=== PATIENT | female | born 1985 ===

== ENCOUNTER 2016-10-27 08:52 | Inpatient (IN) | payer OTHER ==
[~2016-10-27] VITALS: Ht 175.3 cm; Wt 93.4 kg
[2016-10-27] VITALS (17 sets, daily range): BP systolic 87–124; BP diastolic 46–75
[~2016-10-27 08:52] MED LIST: AUGMENTIN TAB875 MG PO; ESGIC PO; VICODIN 5-5001 EACH PO; ceFAZolin sod 2 GM in D5W 110 ML IVPB ONE
[2016-10-27] MEDS ORDERED: Thrombin 5000 units TOPIC ONE (09:33)
[2016-10-27] MEDS ORDERED: Vancomycin 1gm inj IVPB ONE (09:34)
[2016-10-27] MEDS ORDERED: Bupivacaine w/Epi 0.5% 30ml Vial INJ ONE (09:34)
[2016-10-27] MEDS ORDERED: Bacitracin Oint 15gm Tube TOPIC ONE (09:34)
[2016-10-27] MEDS ORDERED: Gelfoam Absorbable 1gm powder pkt TOPIC ONE (09:35)
[2016-10-27] MEDS ORDERED: Thrombin 5000 units spray kit TOPIC ONE (09:35)
[2016-10-27] MEDS ORDERED: Bacitracin 50000 Units Vial ONE (09:35)
--- NOTE | 2016-10-27 09:48 | Pre-Procedure Note/Attestation ---
Pre-Procedure Note/Attestation Complete Prior to Procedure Planned Procedure: right Procedure Narrative: RIGHT L5S1 LAMINOTOMY, MEDIAL FACETECTOMY, FORAMINOTOMY AND MICRODISCECTOMY Indications for Procedure Pre-Operative Diagnosis: LUMBAR RADICULOPATHY Attestation I attest that I discussed the nature of the procedure; its benefits; risks and complications; and alternatives (and the risks and benefits of such alternatives ), prior to the procedure, with the patient (or the patient's legal associate sales representative). I attest that, if there was a reasonable possibility of needing a blood transfusion, the patient (or the patient's legal associate sales representative) was given the [facility] standardized written summary, pursuant to the Saleem Anita Blood Safety Act ([place] Health and Safety Code # 1645, as amended). I attest that I re-evaluated the patient just prior to the surgery and that there has been no change in the patient's H&P, except as documented below: MARTHA MAHMOOD October 27, 2016 09:48
[2016-10-27] MEDS ORDERED: Norco 7.5mg/325mg tab ORAL PRN ×3 (10:00→11:00)
[2016-10-27] MEDS ORDERED: HYDROmorphone 1mg/ml Carpuject IVP PRN (10:00)
[2016-10-27] MEDS ORDERED: Norco 5mg/325mg tab ORAL PRN ×2 (10:00→11:00)
[2016-10-27] MEDS ORDERED: HYDROmorphone 1mg/ml Carpuject SUBQ PRN (10:00)
[2016-10-27] MEDS ORDERED: Naloxone 0.4mg/ml Inj IVP PRN (10:00)
[2016-10-27] MEDS ORDERED: ACETAMINOPHEN-1 EAC1 ORAL (10:18)
[2016-10-27] MEDS ORDERED: fentaNYL 250mcg/5ml ONE (10:53)
[2016-10-27] MEDS ORDERED: Nimbex 2mg/ml Inj 10ML IVP ONE (10:53)
[2016-10-27] MEDS ORDERED: LR 1000ml ONE ×2 (10:53→10:59)
[2016-10-27] MEDS ORDERED: NS Irrig 1000ml ONE ×2 (10:53→10:59)
[2016-10-27] MEDS ORDERED: Sterile Water Irrig 1000ml IRRIG ONE ×2 (10:53→10:59)
[2016-10-27] MEDS ORDERED: Glycopyrrolate 0.2mg/ml 1ml Vial ONE (10:53)
[2016-10-27] MEDS ORDERED: Dexamethasone 4mg/ml vial ONE (10:53)
[2016-10-27] MEDS ORDERED: Neostigmine 1mg/ml 10ml Inj ONE (10:53)
--- NOTE | 2016-10-27 10:53 | Anethesia Preoperative Eval ---
Anesthesia Pre-op PMH/ROS General Date of Evaluation: October 27, 2016 Time of Evaluation: 10:13 Anesthesiologist: Rosario ASA Score: ASA 1 Mallampati Score Class I : Soft palate, uvula, fauces, pillars visible Class II: Soft palate, uvula, fauces visible Class III: Soft palate, base of uvula visible Class IV: Only hard plate visible Mallampati Classification: Class I Surgeon: Shorty Diagnosis: Back Pain Surgical Procedure: R L5-S1 Microdiscetomy, Hemilaminectomy, Foraminotomy Anesthesia History: none Family History: no anesthesia problems Allergies: Coded Allergies: No Known Allergies (Unverified , 06/24/12) Medications: see eMAR Past Medical History Other: obesity - BMI 30 PSxH Narrative: C/S X2 Anesthesia Pre-op Phys. Exam Physician Exam Last Vital Signs Date Time Temp Pulse Resp B/P Pulse Ox O2 Delivery O2 Flow Rate FiO2 10/27/16 10:09 98.6 68 18 106/60 100 Room Air Constitutional: NAD Neurologic: CN 2-12 intact Cardiovascular: RRR Respiratory: CTA Gastrointestinal: S/NT/ND Airway Exam Mallampati Score: Class I MO: full ROM: full Teeth: intact Anesthesia Pre-op A/P Labs Urine Test Test 10/27/16 09:20 Urine HCG, Qualitative Negative Risk Assessment & Plan Assessment: ASA 1 Status Change Before Surgery: No Pre-Antibiotics Dru Grams Ancef IV Given Within 1 Hr of Incision: Yes Time Given: 10:26 Hussain Ponce MD October 27, 2016 10:53
[2016-10-27] MEDS ORDERED: Midazolam 2mg/2ml Inj ONE (10:59)
[2016-10-27] MEDS ORDERED: fentaNYL 100 mcg/2 mL IV ONE (10:59)
[2016-10-27] MEDS ORDERED: Oxycodone/Acetaminophen 5-325 ORAL PRN (11:00)
[2016-10-27] MEDS ORDERED: Ketorolac 30mg Inj IV PRN (11:00)
[2016-10-27] MEDS ORDERED: fentaNYL 100 mcg/2 mL IV PRN (11:00)
[2016-10-27] MEDS ORDERED: Hydromorphone 0.5mg/0.5ml inj IVP PRN (11:00)
[2016-10-27] MEDS ORDERED: Midazolam 2mg/2ml Inj IVP PRN (11:00)
[2016-10-27] MEDS ORDERED: Ketorolac 60mg Inj IV PRN (11:00)
[2016-10-27] MEDS ORDERED: Atropine Inj 1mg/10ml Syr IV PRN (11:00)
[2016-10-27] MEDS ORDERED: DiphenhydrAMINE 50mg/ml Inj IVP PRN (11:00)
[2016-10-27] MEDS ORDERED: LR 1000ml 1,000 ML IVLG SCH (11:00)
[2016-10-27] MEDS ORDERED: Meperidine 25mg/0.5ml Inj IV PRN (11:00)
[2016-10-27] MEDS ORDERED: Metoclopramide 10mg/2ml Inj IVP PRN (11:00)
[2016-10-27] MEDS ORDERED: LORazepam Inj 2mg/ml 1ml IV PRN (11:00)
--- NOTE | 2016-10-27 11:03 | Immediate Post-Op Evaluation ---
Immediate Post-Op Evalulation Immediate Post-Op Evalulation Procedure: R L5-S1 Microdiscetomy, Hemilaminectomy, Foraminotomy Date of Evaluation: October 27, 2016 Time of Evaluation: 12:32 IV Fluids: 800 LR Blood Products: 0 Estimated Blood Loss: 5 Urinary Output: 0 Blood Pressure Systolic: 124 Blood Pressure Diastolic: 67 Pulse Rate: 91 Respiratory Rate: 16 O2 Sat by Pulse Oximetry: 100 Temperature (Fahrenheit): 97.1 Pain Score (1-10): 3 Nausea: No Vomiting: No Complications 0 Patient Status: awake, reacts, patent, extubated, none Hydration Status: adequate Dru Grams Ancef IV Given Within 1 Hr of Incision: Yes Time Given: 10:26 Hussain Ponce MD October 27, 2016 11:03
[2016-10-27] MEDS ORDERED: Acetaminophen (Non formulary) 100 ML IV ONE (12:00)
--- NOTE | 2016-10-27 12:09 | Brief Operative Note ---
Immediate Post Operative Note Operative Note Pre-op Diagnosis: LUMBAR RADICULOPATHY Procedure: right l5s1 microdecompression and microdiscectomy Post-op Diagnosis: same as pre-op Findings: consistent w/pre-op dx studies Surgeon: akanksha Aquatics Coordinator: ambrocio Additional Surgeons: linda Anesthesia: general Specimen: none Complications: none Condition: stable Fluids: 800cc Estimated Blood Loss: volume - 5 cc Drains: none Implant(s) used?: No MARTHA MAHMOOD October 27, 2016 12:09
[2016-10-27] MEDS ORDERED: ceFAZolin sod 1 GM in D5W 55 ML IV SCH (14:00)
--- NOTE | 2016-10-27 14:19 | Diagnostic Imaging Report ---
Indication: Back pain Comparison: None Findings: Single crosstable view of the lumbar spine obtained. Instrumentation posterior to L5-S1. Impression: Intraoperative imaging
[2016-10-27] MEDS: D5 1/2NS 1,000 ML IV SCH (15:42)
[2016-10-27] MEDS: ceFAZolin sod 1 GM in D5W 55 ML IV SCH (16:38)
[2016-10-27] MEDS: Docusate 100mg cap ORAL SCH (17:29)
--- NOTE | 2016-10-27 20:27 | General Progress Note ---
Assessment/Plan Status Narrative s/p microdecompression doing well Assessment/Plan perioperative antibiotic prophyalxis PT OT Dvt prophyalxis wioth scd adn Pneumatic compression stiocking. Subjective Date patient seen: October 27, 2016 Time patient seen: 20:26 Constitutional: Reports: no symptoms Cardiovascular: Reports: no symptoms Respiratory: Reports: no symptoms Gastrointestinal/Abdominal: Reports: no symptoms Genitourinary: Reports: no symptoms Allergies: Coded Allergies: No Known Allergies (Unverified , 06/24/12) Objective Last 24 Hour Vital Signs Date Time Temp Pulse Resp B/P Pulse Ox O2 Delivery O2 Flow Rate FiO2 10/27/16 17:53 97.0 10/27/16 16:15 97.2 74 18 113/62 98 Room Air 10/27/16 15:15 97.0 67 17 92/52 99 Nasal Cannula 2.0 10/27/16 15:00 97.9 58 17 92/55 100 Nasal Cannula 3.0 10/27/16 14:45 59 14 91/54 100 Nasal Cannula 3.0 10/27/16 14:32 69 15 118/75 100 Nasal Cannula 3.0 10/27/16 14:15 64 15 90/58 100 Nasal Cannula 3.0 10/27/16 14:00 63 12 87/57 100 Nasal Cannula 3.0 10/27/16 13:45 65 14 88/59 100 Nasal Cannula 3.0 10/27/16 13:37 97.3 10/27/16 13:30 63 16 88/56 100 Nasal Cannula 3.0 10/27/16 13:15 61 17 91/51 100 Nasal Cannula 3.0 10/27/16 13:05 69 15 100/53 100 Nasal Cannula 3.0 10/27/16 13:00 74 16 98/50 100 Simple Mask 6.0 10/27/16 12:45 72 17 107/53 100 Simple Mask 6.0 10/27/16 12:30 84 12 118/46 100 Simple Mask 6.0 10/27/16 12:22 91 16 100 10/27/16 12:21 97.1 91 16 124/67 100 Simple Mask 6.0 10/27/16 10:09 98.6 68 18 106/60 100 Room Air Laboratory Tests 10/27/16 09:20: Urine HCG, Qualitative Negative Height (Feet): 5 Height (Inches): 9.00 Weight (Pounds): 206 General Appearance: WD/WN Neck: non-tender Cardiovascular: normal rate, regular rhythm, no JVD Respiratory/Chest: lungs clear Abdomen: soft ODETTE THOMAS October 27, 2016 20:27
[2016-10-28] VITALS: BP 102/68
[2016-10-28] MEDS: D5 1/2NS 1,000 ML IV SCH ×2 (00:24→11:17)
[2016-10-28] MEDS: ceFAZolin sod 1 GM in D5W 55 ML IV SCH ×2 (00:24→08:35)
[2016-10-28 04:00] VITALS: BP 103/64
[2016-10-28 08:00] VITALS: BP 96/52
[2016-10-28] MEDS: Docusate 100mg cap ORAL SCH ×2 (08:35→17:58)
--- NOTE | 2016-10-28 09:44 | 48 Hour Post Anesthesia Eval ---
Post Anesthesia Evaluation Procedure: R L5-S1 Microdiscetomy, Hemilaminectomy, Foraminotomy Date of Evaluation: October 28, 2016 Time of Evaluation: 09:41 Blood Pressure Systolic: 108 0: 54 Pulse Rate: 72 Respiratory Rate: 22 Temperature (Fahrenheit): 97.6 O2 Sat by Pulse Oximetry: 98 Airway: patent Nausea: No Vomiting: No Pain Intensity: 3 Hydration Status: adequate Cardiopulmonary Status: stable Mental Status/LOC: patient returned to baseline Follow-up Care/Observations: n/a Post-Anesthesia Complications: none Follow-up care needed: N/A ROLY LAMA M.D. October 28, 2016 09:44
[2016-10-28 12:00] VITALS: BP 93/43
[2016-10-28 16:00] VITALS: BP 105/47
[2016-10-28 20:00] VITALS: BP 106/63
[2016-10-28] MEDS ORDERED: D5 1/2NS 1000ml IV ONE ×2 (22:41→22:56)
[2016-10-28] MEDS ORDERED: Tubing IV Secondary IV ONE (22:56)
--- NOTE | 2016-10-28 23:46 | Operative Note - Dictated ---
DATE OF OPERATION: 10/27/2016 PREOPERATIVE DIAGNOSIS: L5-S1 disc protrusion with stenosis and lower extremity radiculopathy. POSTOPERATIVE DIAGNOSIS: L5-S1 disc protrusion with stenosis and lower extremity radiculopathy. PROCEDURE PERFORMED: 1. Right-sided L5-S1 interlaminar laminotomy, medial facetectomy, foraminotomy and microdiskectomy. 2. Intraoperative use of microscope. 3. Intraoperative use of fluoroscopy. SURGEON: Darren Oro M.D. PAINT TINTER: Douglas Patton M.D. ANESTHESIA: General endotracheal anesthesia. ANESTHESIOLOGIST: Hussain Ponce M.D. INTRAOPERATIVE FINDINGS: Disc protrusion at L5-S1 with central and right paracentral extension causing effacement of the thecal sac, neural elements compression, lateral recess stenosis and compression of the traversing and exiting S1 nerve root. Foraminal stenosis for the exiting L5 nerve root. EBL: 5 mL. BACKGROUND AND INDICATIONS: This is a pleasant female, who failed nonoperative treatments. Option for above treatment was given. Risks, alternatives, and benefits were discussed with the patient at length. Risks include, but are not limited to, anesthesia complications including , medical complications including liver, kidney, and cardiopulmonary deficits, bleeding, infection, neurovascular injury, dural tear, nerve root injury, pars fracture, instability, reherniation as well as continued symptoms. The patient understood and wished to proceed. Written and verbal consent was given. DESCRIPTION OF OPERATION: The patient was brought into the operating room supine on a stretcher. Subsequently, appropriate IV lines were placed and 2 g of Ancef was administered. Surgical time-out was called. Anesthesia was induced. The patient was successfully intubated. Sequential compression devices were placed in the bilateral lower extremities. The patient was gently turned prone on the Lacho frame table. All bony prominences were well padded and the abdomen was assured to lay freely. The L5-S1 interspace was positively identified with lateral fluoroscopy preoperatively. An indelible marker was used to adelina the midline. The patient was prepped and draped in usual sterile fashion with alcohol, chlorhexidine scrub, ChloraPrep, and Ioban draping. Myself and my audiology assistant were prepped and gowned appropriately. At this point, the intraoperatively sterilely draped microscope was brought into the field. An incision was carried out with a scalpel. A self-retainer was placed with a Quintana elevator and monopolar cautery. A dissection was carried out through the dorsal lumbar fascia and through the lamina at L5 and S1 on the right side of the spine. Zapata retractors were set into place. The radiopaque marker was placed at the level of the S1 pedicle on the right side. Once this was accomplished, lateral fluoroscopy was done and the S1 pedicle was positively identified and the L5-S1 interspace was positively identified. At this point, with the use of a high-speed drill, straight and curved curettes #2 to #5 Kerrison punches, a [place] probe, and nerve hook and a dental probe, interlaminar laminotomy and medial facetectomy was accomplished. The ligamentum flavum was removed. The ligamentum flavum was found to be hypertrophied and causing mild lateral recess stenosis. Once this was accomplished, a complete decompression of the lateral recess was done until the medial aspect of the superior articular process was flushed with the S1 pedicle. Once this was done, a [place] 4 was used and the neural elements including the traversing and exiting S1 nerve root was carefully and medially retracted and a disc protrusion was found at L5-S1. With a #11 blade, a horizontal skin incision was carried out and with Woodall rongeurs and pituitary rongeurs, a nerve hook as well as a Peapod rongeur and microdiskectomy was carried out until all loose disc material was removed. Then, the floor of the canal was flat with no further compression of the neural elements. With a #2 Kerrison punch, a foraminotomy was done and the exiting L5 nerve root was found to be completely decompressed. A Alanis ball was used to check the foramina and the foramina was found to be well decompressed. At this point, a final check of the floor of the central canal, lateral recess, and foramina were done and a complete decompression was assured. The wound was copiously irrigated with triple antibiotic solution as well as the interbody space. Once this was completed, a Valsalva 40 mmHg was done. There was no CSF leak and now attention was diverted to closure and the dorsal lumbar fascia was closed with #1 Vicryl sutures in a watertight interrupted fashion. The subdermal and subcuticular layers were closed with 2-0 Vicryl and 4-0 Monocryl respectively. The skin was closed with Surgicel glue. Sterile dressing tape was placed. The patient was turned supine and was extubated in stable condition. She was found to be neurovascularly intact. She was admitted to the hospital for monitoring. Darren Oro M.D. DR: BLANK JOB#: [id number] CC: FRANCESCA
[2016-10-29 04:00] VITALS: BP 102/66
[2016-10-29 08:00] VITALS: BP 98/57
[2016-10-29] MEDS: Docusate 100mg cap ORAL SCH (08:12)
--- NOTE | 2016-10-29 08:54 | General Progress Note ---
Progress Note Progress Note Doing well post op no leg symptoms minimal back pain tolerating diet O: dressing cdi 5/5 motor in the le calves soft adn nt abdomen soft and nt A: Doing well s/p lumbar microdiscectomy P: oob pain meds prn rx and instructions for home given will need to follow up in 7 to 10 days ambulate today and then dc if able to urinate MARTHA MAHMOOD October 29, 2016 08:54
[2016-10-29] MEDS ORDERED: TRAMADOL HCL50 MG ORAL (09:13)
[2016-10-29] MEDS ORDERED: SOMA350 MG PO (09:14)
[2016-10-29] MEDS ORDERED: NAPROSYN500 M1 ORAL (09:15)
[2016-10-29 12:00] VITALS: BP 108/69
--- NOTE | 2016-11-01 10:55 | Discharge Summary ---
Discharge Summary Hospital Course Date of Admission October 27, 2016 at 08:52 Date of Discharge October 29, 2016 at 15:30 Admitting Diagnosis lumbar radiculopathy Reason for Hospitalization: elective surgery HPI Bouchra Cochran is a 31 year old female who was admitted on October 27 for back pain and Lumbar Radiculopathy [address] [facility] for elective surgery Consultations dr Darren BABCOCK Procedures 10/27/16 1. Right-sided L5-S1 interlaminar laminotomy, medial facetectomy, foraminotomy and microdiskectomy. 2. Intraoperative use of microscope. 3. Intraoperative use of fluoroscopy. Hospital Course s/p surgery course of recovery uneventful pain management IS at the bedside PT eval and Rx, ambulates incision clean neurovascular intact DVT prophylaxis (SCD) tolerates diet voided freely had BM stable for discharge DISCHARGE DIAGNOSIS lumbar radiculopathy s/p 10.27 right L5 S1 microdecompression and microdiscectomy postoperative pain Fup with surgeon as outpatient Discharge Medications Continued Medications: Butalb/Acetaminophen/Caffeine (Esgic Capsule) 1 Ea Cap 1 EA PO DAILY PRN Carisoprodol* (Soma*) 350 Mg Tablet 350 MG PO TID PRN for muscle spasm, #30 TAB Naproxen* (Naprosyn*) 500 Mg Tablet 500 MG ORAL TWICE A DAY PRN for For Pain, #40 TAB Tramadol Hcl* (Ultram*) 50 Mg Tablet 50 MG ORAL Q6H PRN for For Pain, #40 TAB 0 Refills Discontinued Medications: Acetaminophen With Codeine (T#3) (Tylenol #3 Tab*) Y Tab 1 TAB ORAL Q4H PRN for For Pain, TAB Amoxicillin/Clavulanate K (Amox-Clav 875-125 mg Tablet) 875 Mg Tab 875 MG PO Q12HR, #14 TAB Hydrocodone/Acetaminophen 5-500 (Vicodin 5-500) 1 Each Tablet 1 TAB PO Q8H, #20 TAB Take 1 tablet by mouth every eight hours as needed for pain. Hydrocodone/Acetaminophen 5-500 (Vicodin 5-500) 1 Each Tablet 1 TAB PO Q8H, #20 TAB Take 1 tablet by mouth every eight hours as needed for pain. Discharge Condition Upon Discharge: stable Discharge Disposition Patient was discharged to Home (01) Discharge Diagnoses: Pardeep (Keyonna)Lisa NP November 01, 2016 10:55
== END 2016-10-29 15:30 | disposition home or self-care (01) | DRG 520 ==
LOC: SDSOVERFLO 08:52 → 3E 15:17
PROC: 0SB40ZZ Excision of Lumbosacral Disc, Open Approach (ICD-10-PCS; principal; 2016-10-27 10:00)
PROC: 01NB0ZZ Release Lumbar Nerve, Open Approach (ICD-10-PCS; principal; 2016-10-27 10:00)
DX: M51.17 Intervertebral disc disorders with radiculopathy, lumbosacral region (principal); M48.07 Spinal stenosis, lumbosacral region
CPT/HCPCS: 72020; 76001; 81025; 87081; 94003; 94150; J2180; J2250; J2405; J2710

== ENCOUNTER 2019-11-27 12:16 | Emergency (ER) | payer OTHER ==
[~2019-11-27] VITALS: Ht 175.3 cm; Wt 90.7 kg
[~2019-11-27 12:16] MED LIST changes: +ACETAMINOPHEN-1 EAC1 ORAL; +NAPROSYN500 M1 ORAL; +SOMA350 MG PO; +TRAMADOL HCL50 MG ORAL; -ceFAZolin sod 2 GM in D5W 110 ML IVPB ONE
[2019-11-27 12:36] VITALS: BP 111/76
[2019-11-27] MEDS ORDERED: Solu-MEDROL 125mg Inj IM STA (12:58)
[2019-11-27] MEDS ORDERED: Acetaminophen 500mg (ES) tab ORAL ONE (13:00)
--- NOTE | 2019-11-27 13:03 | Emergency Room Report ---
History of Present Illness General Chief Complaint: Back Pain-No Injury Source: Patient Present Illness HPI Patient has had increasing back pain for the last 2-1/2 months. It is on the left-hand side and radiates down her leg. She reports numbness and the ball and lateral side of her left foot. It is worsened when she bends over and tries to sit. She is been having some difficulty moving her bowels but denies any incontinence or numbness in the perineal area. It is mainly due to pain. She was evaluated at another facility and prescribed Motrin. She refused to take Motrin because it causes her kidneys to worsen. She has not been taking other medication recently. She states that Tylenol 3 helps her back pain. She does not tolerate [place] or tramadol. In 2017 the patient had lower back surgery with discectomy and other surgical procedure. She had a difficult time recovering after this but for several years she had quite a bit of improvement. Over the last couple of years there is been a gradual worsening of the pain and also the beginning of the radiating down her left leg. She has not seen the specialist or the spine surgeon since 2017. She initially had physical therapy but has not had any recently. Prior to back surgery she had steroid injections that she did not feel helped with that problem. She denies fevers or chills. She is not taking blood thinners. She has no oncologic problems. There is been no recent trauma. No sore throat, chest pain, palpitations, nausea, vomiting, diarrhea, dysuria, abdominal pain, shortness of breath rashes, depression, anxiety, visual changes , dizziness, headache. Allergies: Coded Allergies: No Known Allergies (Unverified , 06/24/12) COVID-19 Screening Contact w/high risk pt: No Recent Travel to affected area: No Experienced COVID-19 symptoms?: No COVID-19 Testing performed QUALITY CONTROL TECH: No Patient History Social History Narrative Single mom raising 2 children. She works at [employer] in housekeeping. She is usually off during the summer months. Last Menstrual Period: last month Now: No Nursing Documentation-PMH Past Medical History: No History, Except For Hx Cardiac Problems: No - back surgery Hx Cancer: No Hx Gastrointestinal Problems: No Hx Neurological Problems: No Review of Systems All Other Systems: negative except mentioned in HPI Physical Exam Vital Signs Date Time Temp Pulse Resp B/P (MAP) Pulse Ox O2 Delivery O2 Flow Rate FiO2 11/27/19 12:23 98.8 84 20 111/76 (88) 99 Room Air Sp02 EP Interpretation: reviewed, normal General Appearance: well appearing, no apparent distress, GCS 15, non-toxic, other - Sitting on the side of the [facility] Head: normocephalic Eyes: bilateral eye normal inspection, bilateral eye PERRL, bilateral eye EOMI ENT: moist mucus membranes Neck: full range of motion, supple Cardiovascular #1: regular rate, rhythm Gastrointestinal: normal inspection Genitourinary: no CVA tenderness Musculoskeletal: gait/station normal, no calf tenderness, tenderness - Lumbar area with some paraspinous spasm and tenderness, other - Straight leg raise causes increased pain at 40 degrees Neurologic: alert, motor strength/tone normal - All lower extremities muscles tested, sensory deficit - Reported lateral side of foot but lateral leg is normal Psychiatric: mood/affect normal Reflexes: 2+ knee (R), 2+ knee (L), 2+ ankle (R); 1+ ankle (L) Skin: no rash, warm/dry, other - Well-healed scar lumbar area Medical Decision Making Diagnostic Impression: Primary Impression: Sciatica Qualified Codes: M54.32 - Sciatica, left side ER Course Patient presents with 2 and half months of increased sciatic pain with reported numbness the side of her left foot. Differential includes sciatica, degenerative disc disease, muscle spasm amongst others. Clinically the patient has sciatica. There are no red flag signs or symptoms. It is disconcerting that she has decreased ankle jerks and change of sensation in the left foot. This is been going on for 2-1/2 months. As the patient cannot tolerate nonsteroidal anti-inflammatories the patient was given a dose of Tylenol here. No imaging studies indicated at this time. Urinalysis checked and is clear. Discussed with patient the possibility that steroids might help decrease swelling and inflammation. As we are not prescribing anti-inflammatory medication this is a viable option. The patient agreed to get a shot of Solu- Medrol. Discussed with the patient the importance of urgent follow-up with specialist. Also suggested that physical therapy might help. Discussed treatment plan with patient. Patient's pain greatly improved with treatment. Patient stable for outpatient observation and treatment. Last Vital Signs Date Time Temp Pulse Resp B/P (MAP) Pulse Ox O2 Delivery O2 Flow Rate FiO2 11/27/19 13:56 98.8 20 111/76 99 Room Air 11/27/19 12:23 84 Status: improved Disposition: HOME, SELF-CARE Condition: Improved Scripts Methocarbamol* (ROBAXIN-500*) 500 Mg Tablet 500 MG ORAL TID PRN for muscle spasms, #10 TAB 0 Refills Prov: Johnathon Chacon MD 11/27/19 Acetaminophen (Tylenol) 325 Mg Tablet 650 MG ORAL Q6H PRN for Prn Pain/Headache/Temp > 101, #30 TAB 0 Refills Prov: Johnathon Chacon MD 11/27/19 Prednisone* (PREDNISONE*) 20 Mg Tablet 40 MG ORAL DAILY, #10 TAB Prov: Johnathon Chacon MD 11/27/19 Acetaminophen With Codeine (T#3) (TYLENOL #3 TAB*) Y Tab 1 TAB ORAL Q8H PRN for For Pain, #16 TAB Prov: Johnathon Chacon MD 11/27/19 Referrals: NON PHYSICIAN (PCP) Johnathon Chacon MD Nov 27, 2019 13:03
[2019-11-27] MEDS ORDERED: PREDNISONE20 MG ORAL (13:10)
[2019-11-27] MEDS ORDERED: TYLENOL325 MG ORAL (13:10)
[2019-11-27] MEDS ORDERED: ACETAMINOPHEN-1 EAC1 ORAL (13:10)
[2019-11-27] MEDS ORDERED: ROBAXIN-500MG ORAL (13:11)
[2019-11-27 13:41] LABS: APPEARANCE,URINE CLEAR; BILIRUBIN, URINE NEGATIVE (NEGATIVE); COLOR,URINE PALE YELLOW; GLUCOSE, URINE (UA) NEGATIVE (NEGATIVE); KETONES,URINE NEGATIVE (NEGATIVE); LEUKOCYTE ESTERASE ,URINE NEGATIVE (NEGATIVE); NITRITE,URINE NEGATIVE (NEGATIVE); PH,URINE 6 (4.5-8.0); PROTEIN,URINE NEGATIVE (NEGATIVE); UROBILINOGEN,URINE NORMAL MG/DL (0.0-1.0)
[2019-11-27 13:56] VITALS: BP 111/76
== END 2019-11-27 14:02 | disposition home or self-care (01) ==
LOC: EMR 12:45
DX: M54.32 Sciatica, left side (principal); R20.0 Anesthesia of skin
CPT/HCPCS: 81003; 81025; 96372; J2930; Z7502; 99283

== ENCOUNTER 2020-07-07 17:42 | Emergency (ER) | payer OTHER ==
[~2020-07-07] VITALS: Ht 177.8 cm; Wt 94.3 kg
[~2020-07-07 17:42] MED LIST changes: +PREDNISONE20 MG ORAL; +ROBAXIN-500MG ORAL; +TYLENOL325 MG ORAL
[2020-07-07 18:01] VITALS: BP 111/68
--- NOTE | 2020-07-07 18:02 | NUR ---
Nurse Note: Pt walked in c/o lower back pain that radiates to tailbone since one week. Pt stated she had 2 back surgery (most recent was 6 months ago). Pt stated LT leg is sore as well. Unk trauma. Pt takes PRN tylenol.
[2020-07-07] MEDS ORDERED: Methocarbamol 750mg tab ORAL ONE (18:15)
[2020-07-07] MEDS ORDERED: traMADol 50mg tab ORAL ONE (18:15)
[2020-07-07] MEDS ORDERED: Ketorolac 30mg Inj IM ONE (18:15)
--- NOTE | 2020-07-07 18:21 | Emergency Room Report ---
History of Present Illness General Chief Complaint: Lower Back Pain or Injury Source: Patient Present Illness HPI Patient is a 35-year-old female history of Right-sided L5-S1 interlaminar laminotomy, medial facetectomy,foraminotomy and microdiskectomy approximately 6 months ago who presents to the ER complaining of lower back pain. She states that she woke up with lower back pain approximately 1 to 2 weeks ago. She states that it radiates down her left leg. She states that it is worse when bending forward. She denies any fever or chills. She denies any rash. She denies any history of IV drug use. She denies any dysuria or hematuria. She denies any focal weakness or paresthesias. She denies any incontinence. She says that it is hard for her to defecate because it is painful when she is sitting on the toilet and pushing hard. She denies any chest pain or shortness of breath. She states that she had Tylenol at home which she took but did not help with her pain. She states that she had a similar episode 6 months ago which prompted her to come to the ER and was treated with medication successfully. Allergies: Coded Allergies: No Known Allergies (Unverified , 06/24/12) COVID-19 Screening Contact w/high risk pt: No Recent Travel to affected area: No Experienced COVID-19 symptoms?: No COVID-19 Testing performed ACUPUNCTURE PHYSICIAN: No Patient History Last Menstrual Period: 06/2020 Now: No Reviewed Nursing Documentation: PMH: Agreed; PSxH: Agreed Nursing Documentation-PMH Hx Cardiac Problems: No - back surgery Hx Cancer: No Hx Gastrointestinal Problems: No Hx Neurological Problems: No Review of Systems All Other Systems: negative except mentioned in HPI Physical Exam Vital Signs Date Time Temp Pulse Resp B/P (MAP) Pulse Ox O2 Delivery O2 Flow Rate FiO2 07/07/20 17:55 98.6 87 16 111/68 (82) 98 Room Air Sp02 EP Interpretation: reviewed, normal General Appearance: well appearing, GCS 15, mild distress Head: normocephalic, atraumatic Eyes: bilateral eye normal inspection, bilateral eye PERRL ENT: hearing grossly normal, normal pharynx, no angioedema, normal voice Neck: full range of motion, supple/symm/no masses Respiratory: chest non-tender, lungs clear, normal breath sounds, speaking full sentences Cardiovascular #1: regular rate, rhythm, no edema Gastrointestinal: normal bowel sounds, non tender, soft, non-distended, no guarding, no rebound Rectal: other - No saddle anesthesia able to squeeze butt cheeks together Musculoskeletal: normal range of motion, other - Lumbar tenderness no step-offs positive straight leg raise left lower extremity Neurologic: motor strength/tone normal, grain unloader machine III-XII nml as tested, oriented x3, sensory intact Psychiatric: no suicidal/homicidal ideation Reflexes: 2+ knee (R), 2+ knee (L) Skin: no rash Lymphatic: no adenopathy Medical Decision Making Diagnostic Impression: Primary Impression: Lumbar radicular pain Additional Impression: Sciatica ER Course I suspect the back pain that the patient is presenting with is non-emergent in etiology. Regarding the history, the patient denies gradual onset, trauma, fevers, night sweats, history of malignancy, pain worse at night, IVDU or refractory pain. Given these pertinent negatives in the history an emergent cause of the back pain is less likely. Also doubt cardiovascular cause of back pain such as aortic dissection or ruptured abdominal aortic aneurysm given patient with equal pulses in all 4 extremities with no diastolic murmur, or pulsatile abdominal mass. Epidural abscess considered unlikely given no fever or history of IVDU. The patient does not have history of malignancy so doubt metastasis to bone. Also doubt caudaequina syndrome since patient with no history of urinary/fecal incontinence or focal weakness or change in sensation. The patient was counseled that, though unlikely, the possibility of an emergent cause of back pain may still be present and that the patient should return immediately if symptoms persists or worsen. I believe the patient is stable for discharge to follow-up with their PMD for further workup and possible MRI. Last Vital Signs Date Time Temp Pulse Resp B/P (MAP) Pulse Ox O2 Delivery O2 Flow Rate FiO2 07/07/20 18:01 98.6 87 16 111/68 98 Room Air Disposition: HOME, SELF-CARE Condition: Stable Scripts Docusate Sodium* (COLACE*) 100 Mg Capsule 100 MG ORAL DAILY, #20 CAP Prov: Sigrid Kennedy M.D. 07/07/20 Hydrocodone/Acetaminophen 5-325* (HYDROCODONE/ACETAMINOPHEN 5-325*) 1 Each Tablet 1 TAB ORAL Q6H PRN for For Pain, #12 TAB 0 Refills Prov: Sigrid Kennedy M.D. 07/07/20 Methocarbamol* (ROBAXIN-750*) 750 Mg Tablet 750 MG PO TID, #21 TAB 0 Refills Prov: Sigrid Kennedy M.D. 07/07/20 Prednisone* (PREDNISONE*) 20 Mg Tablet 40 MG ORAL DAILY, #5 TAB Prov: Sigrid Kennedy M.D. 07/07/20 Additional Instructions: The patient was provided with discharge instructions, notified to follow-up with a primary care doctor and or specialist in the next 24-48 hours, and to return to the ED if they have worsening of their symptoms. Please note that this report is being documented using [employer] technology. This can lead to erroneous entry secondary to incorrect interpretation by the dictating instrument. Sigrid Kennedy M.D. Jul 07, 2020 18:21
[2020-07-07] MEDS ORDERED: HYDROcodone/Acetamin 5/325 tab ORAL ONE (18:30)
[2020-07-07] MEDS ORDERED: HYDROCODON-ACE1 EA15 ORAL (18:51)
[2020-07-07] MEDS ORDERED: PREDNISONE20 MG ORAL (18:51)
[2020-07-07] MEDS ORDERED: COLACE100 MG ORAL (18:51)
[2020-07-07] MEDS ORDERED: ROBAXIN-750750 MG PO (18:51)
[2020-07-07 19:00] VITALS: BP 128/70
--- NOTE | 2020-07-07 19:00 | NUR ---
ED Nurse Note: Pt cleared by health care Provider for discharge. DC instructions/prescription was given and explained to pt and verbalized understanding of teachings. Instructed pt to follow up with PCP within one week. All medical deviecs such as ID band removed. Pt is AAO x4, ambulatory and left with all personal belongings.
== END 2020-07-07 19:00 | disposition home or self-care (01) ==
LOC: EMR 18:15
DX: M54.16 Radiculopathy, lumbar region (principal); M54.30 Sciatica, unspecified side
CPT/HCPCS: 96372; J1885; J7512; Z7502; 99283